=== PATIENT | male | born 1970 | race African-American/Black ===

== ENCOUNTER 2017-01-02 09:36 | Emergency (ER) | payer BC ==
[~2017-01-02] VITALS: Ht 180.3 cm; Wt 80.0 kg
[~2017-01-02 09:36] MED LIST: NORC7.5T PO
[2017-01-02 09:37] VITALS: BP 134/80; PULSE 91; RESP 16; TEMP 98.5; O2SAT 98
--- NOTE | 2017-01-02 10:32 | RADRPT ---
EXAM DATE/TIME: 01/02/2017 10:12 [place] COMPARISON: No previous studies available for comparison. INDICATIONS : Right elbow pain with swelling after working in yard yesterday. MEDICAL HISTORY : None. SURGICAL HISTORY : None. ENCOUNTER: Initial ACUITY: 1 day PAIN SCORE: 8/10 LOCATION: Right upper extremity FINDINGS: There is no evidence of acute fracture. Bony mineralization is normal. There is minimal osteophyte be tween the radial head and ulna. Subcutaneous swelling is present and there may be a small joint effus ion. There is no evidence of acute fracture. CONCLUSION: 1. Degenerative changes as described above. 2. Possible elbow effusion Sunny Estrada MD on January 02, 2017 at 10:30 Board Certified Radiologist. This report was verified electronically.
[2017-01-02] MEDS ORDERED: IBUP-232 PO (10:40)
[2017-01-02] MEDS ORDERED: CYCL1TAB29 PO (10:40)
--- NOTE | 2017-01-02 10:41 | PD ---
HPI Chief Complaint: Musculoskeletal Complaint Time Seen by Provider: 10:20 Travel History International Travel<30 days: No Contact w/Intl Traveler<30days: No Traveled to known affect area: No History of Present Illness HPI Patient is a 46-year-old -[place] male presents emergency Department with some pain and swelling over his right forearm close to the elbow. Patient states he was doing yard work yesterday and working with a rolled seat trimmer. He states he woke up this morning with forearm pain which is gradually worsening throughout the day. Denies any direct traumatic injury. Denies any radiation to the shoulder. States his pain is moderate, cramping, no radiation, context as above. PFSH Past Medical History Diminished Hearing: No Musculoskeletal: Yes (chronic back pain) Immunizations Current: Yes Influenza Vaccination: No Past Surgical History Surgical History: No Previous Surgery Social History Alcohol Use: Yes ( BEER) Tobacco Use: No (1/2 PPD) Substance Use: No Allergies-Medications (Allergen,Severity, Reaction): Coded Allergies: No Known Allergies (Verified , 01/02/17) Reported Meds & Prescriptions Reported Meds & Active Scripts Active Flexeril (Cyclobenzaprine HCl) 10 Mg Tab 10 Mg PO TID Ibuprofen 600 Mg Tab 600 Mg PO Q8HR PRN Review of Systems Except as stated in HPI: all other systems reviewed are Neg Physical Exam Narrative GENERAL: Well-nourished, well-developed patient. SKIN: Focused skin assessment warm/dry. HEAD: Normocephalic. EYES: No scleral icterus. No injection or drainage. NECK: Supple, trachea midline. No JVD or lymphadenopathy. CARDIOVASCULAR: Regular rate and rhythm without murmurs, gallops, or rubs. RESPIRATORY: Breath sounds equal bilaterally. No accessory muscle use. GASTROINTESTINAL: Abdomen soft, non-tender, nondistended. MUSCULOSKELETAL: No cyanosis, or edema. At the right elbow There is minimal limitation of the extension of the elbow and the patient is only able to extend to about 170, there is pain with pronation but not supination, no bony tenderness is appreciated. The remainder of the joints in bilateral upper extremities are atraumatic, full nontender range of motion, compartments are soft. There is no swelling over compartments over the right humerus, pulse motor and sensory intact distally in all 4 extremities. BACK: Nontender without obvious deformity. No CVA tenderness. Data Data Last Documented VS Vital Signs Date Time Temp Pulse Resp B/P (MAP) Pulse Ox O2 Delivery O2 Flow Rate FiO2 01/02/17 11:00 01/02/17 09:37 98.5 91 16 98 Room Air Orders Orders Elbow, Complete (4 Vws) (01/02/17 ) Ibuprofen (Motrin) (01/02/17 10:45) Ed Discharge Order (01/02/17 10:41) MDM Medical Decision Making Medical Screen Exam Complete: Yes Emergency Medical Condition: Yes Differential Diagnosis Strain, sprain, fracture highly unlikely. Narrative Course Patient roomed in emergency department, he is able to range his forearm, x-rays negative. Discussed symptomatic management, return to ED criteria. Follow-up with primary care physician. Diagnosis Primary Impression: Elbow strain Qualified Codes: S56.911A - Strain of unspecified muscles, fascia and tendons at forearm level, right arm, initial encounter Patient Instructions: General Instructions, Muscle Strain (DC), RICE Therapy ( ED) Med/Other Pt SpecificInfo: Prescription(s) given Scripts Cyclobenzaprine (Flexeril) 10 Mg Tab 10 MG PO TID for Muscle Spasm, #20 TAB 0 Refills Prov: Jakub Weaver MD 01/02/17 Ibuprofen (Ibuprofen) 600 Mg Tab 600 MG PO Q8HR Y for PAIN, #20 TAB 0 Refills Prov: Jakub Weaver MD 01/02/17 Disposition: 01 DISCHARGE HOME Condition: Stable Jakub Weaver MD Jan 02, 2017 10:41
[2017-01-02] MEDS ORDERED: IBUPROFEN 600 MG TAB PO ONE (10:45)
== END 2017-01-02 11:18 | disposition home or self-care (01) ==
LOC: PHED 09:36
DX: S56.911A Strain of unspecified muscles, fascia and tendons at forearm level, right arm, initial encounter (principal); Z87.39 Personal history of other diseases of the musculoskeletal system and connective tissue; X58.XXXA Exposure to other specified factors, initial encounter; Y93.H2 Activity, gardening and landscaping
CPT/HCPCS: 73080; 99283